=== PATIENT | male | born 1985 | race Caucasian/White ===

== ENCOUNTER 2019-07-13 14:49 | Emergency (ER) | payer BC, OTHER ==
[~2019-07-13] VITALS: Ht 170.2 cm; Wt 112.5 kg
[2019-07-13 14:50] VITALS: BP 148/74
--- NOTE | 2019-07-13 14:50 | NUR ---
TO BED # 11 AMBULATORY
[2019-07-13] MEDS ORDERED: DEXAMETHASONE 10 MG/ML VIAL IM ONE (15:05)
[2019-07-13] MEDS ORDERED: ALBUTEROL SULFATE/IPRATROPIU 3 ML SOL IH ONE ×2 (15:05→15:45)
--- NOTE | 2019-07-13 15:12 | NUR ---
RT AT BEDSIDE
--- NOTE | 2019-07-13 15:17 | NUR ---
XRAY AT BEDSIDE
--- NOTE | 2019-07-13 15:21 | NUR ---
[facility] IM ADMINISTERED
--- NOTE | 2019-07-13 15:31 | NUR ---
PATIENT PRESENTS TO ED WITH SOB. NON-PRODUCTIVE COUGH AND WHEEZING FOR 3 WEEKS. PT STATES THAT THESE SYMPTOMS HAVE PROGRESSIVELY BEEN GETTING WORSE. PT CONSULTED MD 5 DAYS AGO- PRESCRIBED WITH ANTIBIOTICS X 5 DAYS, FLONASE, CLARITIN AND PROMETHEZINE, WHICH PROVIDED NO RELIEF. DENIES N/V/D; LUNGS CLEAR BL; HR EVEN AND REGULAR; PT DENIES ANY FEVER AND CP AT THIS TIME; PATIENT STATES PAIN OF 0/10 AT THIS TIME; VSS; PATIENT POSITIONED FOR COMFORT; HOB ELEVATED; BEDRAILS UP X2; BED DOWN. ER MD MADE AWARE OF PT STATUS.
--- NOTE | 2019-07-13 16:02 | NUR ---
FOLLOW UP [facility] THERAPY AND RESPIRATORY DRUG GIVEN ORDERED
[2019-07-13 16:24] VITALS: BP 148/74
--- NOTE | 2019-07-13 16:25 | NUR ---
Patient discharged with v/s stable. Written and verbal after care instructions given and explained. Patient alert, oriented and verbalized understanding of instructions. Ambulatory with steady gait. All questions addressed prior to discharge. ID band removed. Patient advised to follow up with PMD. Rx of TESSALON, RANITIDINE, ALBUTEROL, PREDNISONE given. Patient educated on indication of medication including possible reaction and side effects. Opportunity to ask questions provided and answered.
== END 2019-07-13 16:25 | disposition home or self-care (01) ==
LOC: MED 14:49
DX: J40 Bronchitis, not specified as acute or chronic (principal); K21.9 Gastro-esophageal reflux disease without esophagitis
CPT/HCPCS: 71045; 94640; 96372; 99284; J1100; J7620; Q0092